=== PATIENT | male | born 1975 | race American Indian/Alaskan Native ===

== ENCOUNTER 2021-06-02 11:22 | Outpatient (CLI) | payer BC ==
[2021-06-02 12:01] LABS: Basophils # (Auto) 0.1 K/mm3 (0.0-0.1); Basophils % (Auto) 1.3 % (0.0-1.8); Eosinophils % (Auto) 0.3 % (0.0-4.3); Hematocrit 44.6 % (35.5-45.6); Hemoglobin 14.6 gm/dl (11.8-15.2); Lymphocytes # (Auto) 2.2 K/mm3 (1.2-5.4); Mean Corpuscular HGB Conc 33 % (32-34); Mean Corpuscular Volume 86 fl (84-94); Monocytes # (Auto) 0.5 K/mm3 (0.0-0.8); Monocytes % (Auto) 6.9 % (0.0-7.3); Platelet Count 242 K/mm3 (140-440); Red Blood Count 5.17 M/mm3 (3.65-5.03); Red Cell Distribution Width 13.4 % (13.2-15.2)
[2021-06-02 12:22] LABS: Alanine Aminotransferase 12 units/L (7-56); Albumin 4.7 g/dL (3.9-5); BUN/Creatinine Ratio 13; Blood Urea Nitrogen 16 mg/dL (9-20); Chol/HDL Ratio 3.38 %; HDL Cholesterol 65 mg/dL (40-59); Hemolysis Index 8; LDL Cholesterol,Direct 146 mg/dL (50-130)
== END 2021-06-02 11:23 | disposition home or self-care (01) ==
LOC: LAB 11:22
PROVIDERS: ATTEND Internal Medicine
DX: Z00.00 Encounter for general adult medical examination without abnormal findings (principal); Z13.1 Encounter for screening for diabetes mellitus; R53.83 Other fatigue; E55.9 Vitamin D deficiency, unspecified
CPT/HCPCS: 36415; 80053; 80061; 82306; 84443; 85025

== ENCOUNTER 2021-06-04 09:47 | Outpatient (CLI) | payer BC ==
--- NOTE | 2021-06-04 11:53 | XRay Report ---
BILATERAL KNEE 4 VIEW(S) INDICATION / CLINICAL INFORMATION: BILATERAL KNEE PAIN COMPARISON: None available. FINDINGS: BONES / JOINT(S): No acute fracture or subluxation. Mild degenerative changes of the bilateral knee j oints. SOFT TISSUES: No significant abnormality. ADDITIONAL FINDINGS: None. Signer Name: Germain Aranda MD Signed: 06/04/2021 11:48 AM Workstation Name: [id number]
--- NOTE | 2021-06-04 11:53 | XRay Report ---
LUMBAR SPINE 3 VIEWS INDICATION / CLINICAL INFORMATION: BACK PAIN. COMPARISON: None available. FINDINGS: VERTEBRAE: No acute fracture. No significant malalignment. DISC SPACES / FACET JOINTS:No significant abnormality. PARASPINAL SOFT TISSUES:No significant abnormality. ADDITIONAL FINDINGS: None. Signer Name: Germain Aranda MD Signed: 06/04/2021 11:48 AM Workstation Name: [email or web address]
== END 2021-06-04 09:48 | disposition home or self-care (01) ==
LOC: XRAY 09:47
PROVIDERS: ATTEND Internal Medicine
DX: M17.0 Bilateral primary osteoarthritis of knee (principal); M54.50 Low back pain, unspecified
CPT/HCPCS: 72100

== ENCOUNTER 2021-07-07 03:56 | Emergency (ER) | payer BC ==
[2021-07-07] MEDS: HYDROcodone/ACETAMINOPHEN 5-325 MG TAB PO STA (06:25)
--- NOTE | 2021-07-07 06:28 | Emergency Department Report ---
ED Lower Extremity HPI - General Chief Complaint: Extremity Injury, Lower Stated Complaint: RIGHT KNEE PAIN Time Seen by Provider: 07/07/21 06:02 Source: patient Mode of arrival: Ambulatory Limitations: No Limitations - History of Present Illness Initial Comments: 46-year-old Constance was presents emerged from complaining of aggressive worsening knee pain and acute on chronic fashion over the last 1week a lot of walking lifting pushing pulling at [place]. States when he was in [facility] back in 2004 he had a significant injury to the knee which was which he feels was improperly treated with this and a knee brace and anti-inflammatories. The patient states that he has had issues with knee stiff knee stability and in conjunction with swelling and pain which continues to worsen off and on now cannot stand or walk without significant discomfort in his knee and states sometimes it gives out causing problems when he tries to climb. No numbness or tingling is appreciated. Reports no no popliteal mass reports no previous surgeries to the knee. MD Complaint: knee injury -: Gradual, days(s) Injury: Knee: Right Place: home Severity: moderate Associated Symptoms: snap/pop sensation, swelling, able to partially bear weight - Related Data Previous Rx's Medication Instructions Recorded Last Taken Type Ketorolac [Toradol] 10 mg PO Q6H PRN #14 07/07/21 Unknown Rx Leg Brace [Knee Brace] 1 each MC DAILY #1 each 07/07/21 Unknown Rx Allergies Allergy/AdvReac Type Severity Reaction Status Date / Time No Known Allergies Allergy Verified 07/07/21 06:17 ED Review of Systems ROS: Stated complaint: RIGHT KNEE PAIN Other details as noted in HPI Comment: All other systems reviewed and negative ED Past Medical Hx - Medications Home Medications: Home Medications Medication Instructions Recorded Confirmed Last Taken Type Ketorolac [Toradol] 10 mg PO Q6H PRN #14 07/07/21 Unknown Rx Leg Brace [Knee Brace] 1 each MC DAILY #1 each 07/07/21 Unknown Rx ED Physical Exam - General Limitations: No Limitations General appearance: alert, in no apparent distress - Head Head exam: Present: atraumatic, normocephalic - Eye Eye exam: Present: normal appearance, PERRL, EOMI Pupils: Present: normal accommodation - ENT ENT exam: Present: normal exam, mucous membranes moist - Neck Neck exam: Present: normal inspection - Respiratory Respiratory exam: Present: normal lung sounds bilaterally. Absent: respiratory distress, wheezes - Cardiovascular Cardiovascular Exam: Present: regular rate, normal rhythm. Absent: systolic murmur, diastolic murmur, rubs, gallop - GI/Abdominal GI/Abdominal exam: Present: soft, normal bowel sounds. Absent: tenderness, guarding, rebound - Rectal Rectal exam: Present: deferred - Extremities Exam Extremities exam: Present: normal inspection - Expanded Lower Extremity Exam Right Knee exam: Present: tenderness, swelling, pain/laxity with valgus. Absent: ecchymosis, deformity, erythema Ankle exam: Present: normal inspection Foot/Toe exam: Present: normal inspection - Back Exam Back exam: Present: normal inspection - Neurological Exam Neurological exam: Present: alert, oriented X3 - Psychiatric Psychiatric exam: Present: normal affect, normal mood - Skin Skin exam: Present: warm, dry, intact, normal color. Absent: rash ED Course Vital Signs 07/07/21 03:59 Temperature 97.9 F Pulse Rate 80 Respiratory 20 Rate Blood Pressure 138/97 O2 Sat by Pulse 97 Oximetry Critical care attestation.: If time is entered above; I have spent that time in minutes in the direct care of this critically ill patient, excluding procedure time. ED Disposition Clinical Impression: Knee internal derangement Disposition: 01 HOME / SELF CARE / HOMELESS Is pt being admited?: No Does the pt Need Aspirin: No Condition: Stable Instructions: Acute Knee Pain, Adult, Medial Collateral Knee Ligament Sprain, Phase II Rehab-SportsMed, Meniscus Tear, How to Use a Knee Immobilizer Prescriptions: Leg Brace [Knee Brace] 1 each MC DAILY #1 each Ketorolac [Toradol] 10 mg PO Q6H PRN #14 PRN Reason: Pain Referrals: [facility] [Provider Group] - 3-5 Days
[2021-07-07 07:04] VITALS: BP 128/88
== END 2021-07-07 07:00 | disposition home or self-care (01) ==
LOC: ED 03:56
DX: M23.91 Unspecified internal derangement of right knee (principal)
CPT/HCPCS: 99282

== ENCOUNTER 2021-10-10 09:05 | Outpatient (CLI) | payer BC ==
[2021-10-10 10:21] LABS: Chol/HDL Ratio 2.6 %
== END 2021-10-10 09:06 | disposition home or self-care (01) ==
LOC: LAB 09:05
PROVIDERS: ATTEND Internal Medicine
DX: E78.5 Hyperlipidemia, unspecified (principal)
CPT/HCPCS: 36415; 80061